=== PATIENT | female | born 1980 | race Caucasian/White ===

== ENCOUNTER 2019-05-21 17:41 | Emergency (ER) | payer BC ==
[2019-05-21] MEDS ORDERED: predniSONE 20 MG TAB ONE (18:20)
[2019-05-21] MEDS ORDERED: IPRATROPIUM BROM 0.5MG/2.5ML ONE (18:20)
[2019-05-21] MEDS ORDERED: AZITHROMYCIN 250 MG TAB ONE (18:20)
[2019-05-21] MEDS ORDERED: ALBUTEROL 2.5 MG/3 ML NEB SOL ONE (18:21)
--- NOTE | 2019-05-21 18:34 | RAD REPORT ---
EXAM DESCRIPTION: RAD - Chest Single View - 05/21/2019 6:23 pm CLINICAL HISTORY: CONGESTION, cough COMPARISON: None TECHNIQUE: AP portable chest image was obtained 05/21/2019 6:23 pm . FINDINGS: Lungs are clear. Heart and vasculature are normal. No measurable pleural effusion and no p neumothorax. No acute bony abnormality seen. No acute aortic findings suspected. IMPRESSION: No acute cardiopulmonary process.
--- NOTE | 2019-05-21 19:07 | ER ---
Nurse's Notes [facility] Name: Bird Holland Age: 39 yrs Sex: Female : 1980 Arrival Date: 05/21/2019 Time: 17:44 Bed 20 Private MD: Diagnosis: Asthma Presentation: 05/20 18:02 Chief complaint: Patient states: cough for a few weeks that got worse yesterday. dm5 History of asthma, tried extra neb treatment with no relief. Coronavirus screen: The patient has NOT traveled to a country currently being monitored by the [facility] within the last 14 days. Proceed with normal triage procedures. The patient has NOT had contact with any known and/or suspected case of coronavirus. Proceed with normal triage procedures. Ebola Screen: Patient negative for fever greater than or equal to 101.5 degrees Fahrenheit, and additional compatible Ebola Virus Disease symptoms Patient denies exposure to infectious person. Patient denies travel to an Ebola-affected area in the 21 days before illness onset. No symptoms or risks identified at this time. Initial Sepsis Screen: Does the patient meet any 2 criteria? No. Patient's initial sepsis screen is negative. Does the patient have a suspected source of infection? No. Patient's initial sepsis screen is negative. Risk Assessment: Do you want to hurt yourself or someone else? Patient reports no desire to harm self or others. 18:02 Method Of Arrival: Ambulatory dm5 18:02 Acuity: CONTRERAS 3 dm5 19:00 Onset of symptoms was May 21, 2019. 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 - Social history:: Patient/guardian denies using alcohol, street drugs, Smoking status: Patient denies any tobacco usage or history of. - Family history:: not pertinent. Screenin:00 Abuse screen: Denies threats or abuse. Nutritional screening: No deficits noted. em Tuberculosis screening: No symptoms or risk factors identified. Fall Risk None identified. Assessment: 18:15 General: Appears in no apparent distress. uncomfortable, Behavior is calm, cooperative, em Denies fever. Pain: Denies pain. Neuro: Level of Consciousness is awake, alert, obeys commands, Oriented to person, place, time, situation, Appropriate for age. Cardiovascular: Capillary refill < 3 seconds Patient's skin is warm and dry. Respiratory: Reports cough that is non-productive, Airway is patent Respiratory effort is even, unlabored, Respiratory pattern is regular, symmetrical, Breath sounds with wheezes bilaterally. Derm: Skin is intact, is healthy with good turgor, Skin is pink, warm \T\ dry. Musculoskeletal: Capillary refill < 3 seconds, Range of motion: intact in all extremities. 19:00 Reassessment: Patient appears in no apparent distress at this time. Patient and/or ca1 family updated on plan of care and expected duration. Pain level reassessed. Patient is alert, oriented x 3, equal unlabored respirations, skin warm/dry/pink. Vital Signs: 18:02 BP 134 / 88; Pulse 92; Resp 20; Temp 97.9(TE); Pulse Ox 99% ; dm5 19:00 BP 134 / 78; Pulse 93; Resp 16 S; Pulse Ox 98% on R/A; ca1 ED Course: 17:44 Patient arrived in ED. ag5 17:57 Alayna Ventura MD is Attending Physician. ma2 18:00 Patient has correct armband on for positive identification. Placed in gown. Bed in low em position. Call light in reach. Side rails up X2. Pulse ox on. NIBP on. 18:00 Arm band placed on. em 18:04 Triage completed. dm5 18:21 Chest Single View XRAY In Process Unspecified. EDMS 18:31 Harry Romeo, JAXSON is Primary Nurse. em 19:22 No provider procedures requiring assistance completed. Patient did not have IV access ca1 during this emergency room visit. Administered Medications: 18:18 Drug: Albuterol - atroVENT (3:1) (2.5 mg - 0.5 mg) 3 ml Route: Nebulizer; em 19:14 Follow up: Response: No adverse reaction; Marked relief of symptoms ca1 18:20 Drug: predniSONE 60 mg Route: PO; em 19:13 Follow up: Response: No adverse reaction ca1 18:20 Drug: Zithromax 500 mg Route: PO; em 19:13 Follow up: Response: No adverse reaction ca1 18:21 Not Given (Other Intervention Used): SOLU-Medrol 125 mg IVP once em 18:21 Not Given (Other Intervention Used): AZITHromycin 500 mg IVPB once over 1 hrs; (mix in em 250 mL NS) Outcome: 19:05 Discharge ordered by . rasheed 19:20 Discharged to home ambulatory. ca1 19:20 Condition: stable 19:20 Discharge instructions given to patient, Instructed on discharge instructions, follow up and referral plans. medication usage, Demonstrated understanding of instructions, follow-up care, medications, Prescriptions given X 4. 19:25 Patient left the ED. ca1 Signatures: Dispatcher [employer] Onelia Culver RN RN dm5 Harry Romeo RN RN em Alzahri, Mohammad, MD MD ma2 Maria Teresa Horton RN RN ca1 Reji Gabriel ag5
--- NOTE | 2019-05-21 19:07 | EDPHYS ---
Physician Documentation [facility] Name: Bird Holland Age: 39 yrs Sex: Female : 1980 Arrival Date: 05/21/2019 Time: 17:44 Bed 20 Private MD: ED Physician Alayna Ventura HPI: 05/20 19:04 This 39 yrs old Female presents to ER via Ambulatory with complaints of ma2 Asthma Exacerbation. 19:04 Onset: The symptoms/episode began/occurred gradually, 1 week(s) ago. Associated signs ma2 and symptoms: Pertinent negatives: choking, nausea, rash. Severity of symptoms: At their worst the symptoms were mild in the emergency department the symptoms are unchanged. The patient has not experienced similar symptoms in the past. 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 - Social history:: Patient/guardian denies using alcohol, street drugs, Smoking status: Patient denies any tobacco usage or history of. - Family history:: not pertinent. ROS: 19:04 Constitutional: Negative for fever, chills, and weight loss, Neck: Negative for injury, ma2 pain, and swelling, Cardiovascular: Negative for chest pain, palpitations, and edema, Respiratory: Negative for shortness of breath, cough, wheezing, and pleuritic chest pain, Abdomen/GI: Negative for abdominal pain, nausea, diarrhea, and constipation, Back: Negative for injury and pain. 19:04 All other systems are negative. Exam: 19:04 Constitutional: This is a well developed, well nourished patient who is awake, alert, ma2 and in no acute distress. Chest/axilla: Normal chest wall appearance and motion. Nontender with no deformity. No lesions are appreciated. Cardiovascular: Regular rate and rhythm with a normal S1 and S2. No gallops, murmurs, or rubs. Normal PMI, no JVD. No pulse deficits. Respiratory: + diffuse wheezes, Lungs have equal breath sounds bilaterally, clear to auscultation and percussion. No rales, rhonchi o noted. No increased work of breathing, no retractions or nasal flaring. Abdomen/GI: Soft, non-tender, with normal bowel sounds. No distension or tympany. No guarding or rebound. No evidence of tenderness throughout. MS/ Extremity: Pulses equal, no cyanosis. Neurovascular intact. Full, normal range of motion. Neuro: Awake and alert, GCS 15, oriented to person, place, time, and situation. Cranial nerves II-XII grossly intact. Motor strength 5/5 in all extremities. Sensory grossly intact. Cerebellar exam normal. Normal gait. Vital Signs: 18:02 BP 134 / 88; Pulse 92; Resp 20; Temp 97.9(TE); Pulse Ox 99% ; dm5 19:00 BP 134 / 78; Pulse 93; Resp 16 S; Pulse Ox 98% on R/A; ca1 MDM: 17:57 Patient medically screened. ma2 19:04 Differential diagnosis: acute asthma, exercise-induced asthma, reactive airway, URI. ma2 Antibiotic administration: The patient is discharged and will get outpatient antibiotics. Data reviewed: vital signs, nurses notes. Counseling: I had a detailed discussion with the patient and/or guardian regarding: the historical points, exam findings, and any diagnostic results supporting the discharge/admit diagnosis, the presence of at least one elevated blood pressure reading (>120/80) during this emergency department visit, lab results, the need for outpatient follow up. Response to treatment: the patient's symptoms have resolved after treatment. 05/20 18:07 Order name: Chest Single View XRAY; Complete Time: 19:02 ma2 Administered Medications: 18:18 Drug: Albuterol - atroVENT (3:1) (2.5 mg - 0.5 mg) 3 ml Route: Nebulizer; em 19:14 Follow up: Response: No adverse reaction; Marked relief of symptoms ca1 18:20 Drug: predniSONE 60 mg Route: PO; em 19:13 Follow up: Response: No adverse reaction ca1 18:20 Drug: Zithromax 500 mg Route: PO; em 19:13 Follow up: Response: No adverse reaction ca1 18:21 Not Given (Other Intervention Used): SOLU-Medrol 125 mg IVP once em 18:21 Not Given (Other Intervention Used): AZITHromycin 500 mg IVPB once over 1 hrs; (mix in em 250 mL NS) Disposition: 05/21/19 19:05 Discharged to Home. Impression: Asthma. - Condition is Stable. - Discharge Instructions: Asthma, Pediatric. - Prescriptions for Albuterol Sulfate 2.5 mg /3 mL (0.083 %) Inhalation Solution for Nebulization - inhale 1 unit by NEBULIZATION route every 8 hours As needed; 1 box. Zithromax Z- Enrique 250 mg Oral Tablet - take 1 tablet by ORAL route as directed for 5 days Day 1 - take two (2) tablets one time. Day 2, 3, 4 , 5 take one (1) tablet once daily.; 6 tablet. Medrol (Enrique) 4 mg Oral Tablets, Dose Pack - take 1 tablet by ORAL route as directed - follow package instructions; 1 packet. Albuterol Sulfate 90 mcg/actuation - inhale 1-2 puff by INHALATION route every 4-6 hours; 1 Inhaler. - Medication Reconciliation Form, Thank You Letter, Antibiotic Education, Prescription Opioid Use, Work release form form. - Follow up: Private Physician; When: Tomorrow; Reason: If symptoms return, Continuance of care. Signatures: Dispatcher [employer] Harry Troy RN RN Alayna Hernández MD MD ma2 Maria Teresa Horton RN RN ca1 Corrections: (The following items were deleted from the chart) 19:25 19:05 05/21/2019 19:05 Discharged to Home. Impression: Asthma. Condition is Stable. ca1 Prescriptions for Albuterol Sulfate 2.5 mg /3 mL (0.083 %) Inhalation Solution for Nebulization - inhale 1 unit by NEBULIZATION route every 8 hours As needed; 1 box, Zithromax Z-Enrique 250 mg Oral Tablet - take 1 tablet by ORAL route as directed for 5 days Day 1 - take two (2) tablets one time. Day 2, 3, 4 , 5 take one (1) tablet once daily.; 6 tablet, Medrol (Enrique) 4 mg Oral Tablets, Dose Pack - take 1 tablet by ORAL route as directed - follow package instructions; 1 packet. and Forms are Medication Reconciliation Form, Thank You Letter, Antibiotic Education, Prescription Opioid Use. Follow up: Private Physician; When: Tomorrow; Reason: If symptoms return, Continuance of care. ma2
[2019-05-21 19:32] VITALS: TEMP 97.9
[2019-05-21 19:34] VITALS: BP 134/78; O2SAT 98
== END 2019-05-21 19:25 | disposition home or self-care (01) ==
LOC: ER 17:41
DX: J45.909 Unspecified asthma, uncomplicated (principal)
CPT/HCPCS: 71045; 94640; 99284; J7512

== ENCOUNTER 2021-04-20 08:56 | Emergency (ER) | payer BC ==
--- OUTSIDE RECORDS SUMMARY | 2021-04-20 08:58 | XMS REPORT | Continuity of Care Document ---
:1980 Author Organization [facility] t Address [address] [place] [address] Care Team Providers Name Role Phone REMINGTON PETTIT Attending Clinician Unavailable Vaccine, Family Attending Clinician Unavailable Junie RESOURCE CENTER TEACHER Attending Clinician JUNIE Attending Clinician Unavailable Lab, Fam Pob I Attending Clinician Unavailable Anene RESOURCE CENTER TEACHER Attending Clinician ANENE Attending Clinician Unavailable Doctor Unassigned, Name Attending Clinician Unavailable Payers Payer Name Policy Type Policy Number Effective Date Expiration Date S [facility] - [id number] 2019 00:00:00 OUT OF STATE Problems This patient has no known problems. Allergies, Adverse Reactions, Alerts Allergy Allergy Status Severity Reaction(s) Onset Inactive Treating Comm ents Source Name Type Date Date Clinician NO KNOWN Drug Active Univers ALLERGIE Class ity of [facility] Social History Social Habit Start Date Stop Date Quantity Comments Source Exposure to Not sure [facility] SARS-CoV-2 (event) Medica l Branch Sex Assigned At [birth year] [facility] 00:00:00 00:00:00 Medical Branch Smoking Status Start Date Stop Date Source Unknown if ever smoked [facility] Medications This patient has no known medications. Immunizations Ordered Filled Immunization Date Status Comments Sourc e Immunization Name Name SARS-COV-2 COVID-19 2020-10-04 Completed Unive rsity of PFIZER VACCINE 00:00:00 [facility] Procedures Procedure Date / Time Performed Performing Clinician Bradley e SARS-COV-2 COVID-19 2020-10-04 14:42:30 Doctor Unassigned, No Un [facility] [place] VACCINE,0.3ML,IM Name Medical Branch (PFIZER) Encounters Start End Encounter Admission Attending Care Care Encounter Source Date/Time Date/Time Type Type Clinicians Facility Department ID 2020-10-25 2020-10-25 Outpatient R [facility] [id number] Univers 09:30:00 09:30:00 [id number] ity [facility] 2020-10-25 2020-10-25 Outpatient R [facility] [id number] Univers 09:30:00 09:30:00 ity [facility] 2020-10-24 2020-10-24 [facility] [id number] Univers 14:30:00 14:30:00 [facility] 2020-10-04 2020-10-04 Imm/Inj Vaccine, [facility] 1.2.84 [id number] Univers 09:34:16 09:44:[address] [facility] [id number] ity of [place] [id number] Yao as Professio [phone] Id dical nal [address] 2020-10-04 2020-10-04 Outpatient [facility] [id number] Univers 09:10:00 09:10:00 [id number] ity [facility] 2020-10-04 2020-10-04 Outpatient R JUNIE [facility] [id number] Univers 09:10:00 09:10:[address] [facility] 2020-03-25 2020-03-25 Laboratory Lab, [facility] I [facility] 1.2. [id number] Univers 16:18:47 16:38:[address] [facility] [id number] ity [place] [id number] Yao as Professio [phone] Id dical nal [address] 2020-03-25 2020-03-25 Outpatient [facility] [id number] Univers 16:20:00 16:20:[id number] [facility] 2020-03-25 2020-03-25 Outpatient R ALEXYS [facility] [id number] Univers 16:20:00 16:20:[address] [facility] 2020-01-21 2020-01-21 Laboratory Lab, Adc Fam Pob I [facility] 1.2. [id number] Univers 14:38:35 14:58:35 Only Nikunj Alvares [id number] ity of [place] [id number] Yao as Raeannio [phone] [facility] [address] 2020-01-21 2020-01-21 Outpatient R ALEXYS [facility] [id number] Univers 14:40:00 14:40:00 NIKUNJ ity [facility] 2020-01-21 2020-01-21 Outpatient [facility] [id number] Univers 14:40:00 14:40:00 [id number] ity [facility] 2020-01-21 2020-01-21 Letter Doctor JULIETTE [id number] Univers 00:00:00 00:00:00 (Out) Unassigned, ZECHARIAH [id number] ity of [place] [facility] [id number] Yao as [phone] [place] [address] Branch Results This patient has no known results.
--- NOTE | 2021-04-20 10:14 | ER ---
Nurse's Notes [facility] Name: Bird Holland Age: 41 yrs Sex: Female : 1980 Arrival Date: 04/20/2021 Time: 08:56 Bed 9 Private MD: Diagnosis: Acute pharyngitis, unspecified;Acute upper respiratory infection, unspecified;Acute serous otitis media, bilateral Presentation: 04/20 09:08 Chief complaint: Patient states: Fever, cough, SOB, GARCIA for 12 days. Coronavirus screen: 1 Vaccine status: Patient reports receiving the 2nd dose of the covid vaccine. Client denies travel out of the [place] in the last 14 days. congestion, cough unrelated to allergies, fatigue, fever, headache, muscle pain, shortness of breath, Client presents with at least one sign or symptom that may indicate coronavirus-19. Standard/surgical mask placed on the client. Ebola Screen: Patient denies travel to an Ebola-affected area in the 21 days before illness onset. Initial Sepsis Screen: Does the patient meet any 2 criteria? HR > 90 bpm. No. Patient's initial sepsis screen is negative. Does the patient have a suspected source of infection? Yes: Productive cough/pneumonia. Risk Assessment: Do you want to hurt yourself or someone else? Patient reports no desire to harm self or others. Onset of symptoms was April 08, 2021. 09:08 Method Of Arrival: Ambulatory [facility] 09:08 Acuity: CONTRERAS 3 ll1 Historical: - Allergies: 09:10 No Known Allergies; ll1 - PMHx: 09:10 Asthma; ll1 - PSHx: 09:10 None; ll1 - Immunization history:: Client reports receiving the 2nd dose of the Covid vaccine. - Social history:: Smoking status: Patient denies any tobacco usage or history of. Vital Signs: 09:08 BP 141 / 81; Pulse 111; Resp 18; Temp 99.7; Pulse Ox 98% on R/A; Weight 94.35 kg; ll1 Height 5 ft. 5 in. (165.10 cm); Pain 9/10; 09:08 Body Mass Index 34.61 (94.35 kg, 165.10 cm) 1 ED Course: 08:56 Patient arrived in ED. as 09:09 Bashir Agosto PA is PHCP. [facility] 09:09 Ronaldo Zimmer MD is Attending Physician. [facility] 09:10 Triage completed. [facility] 09:10 Arm band placed on Patient placed in an exam room, on a stretcher. [facility] 10:14 Kaylyn Hutton, RN is Primary Nurse. [facility] Administered Medications: 10:21 Drug: Decadron (dexamethasone) 10 mg Route: IM; Site: right deltoid; [facility] Outcome: 10:13 Discharge ordered by MD. [facility] 10:21 Patient [address] the ED. [facility] Signatures: Bashir Agosto PA PA jmm Martinez, Amelia as Lewis, Lynsay, JAXSON RN [facility] Kaylyn Hutton, JAXSON RN [facility]
--- NOTE | 2021-04-20 10:15 | EDPHYS ---
Physician Documentation [facility] Name: Bird Holland Age: 41 yrs Sex: Female : 1980 Arrival Date: 04/20/2021 Time: 08:56 Bed 9 Private MD: ED Physician Ronaldo Zimmer HPI: 04/20 10:10 This 41 yrs old Female presents to ER via Ambulatory with complaints of Fever, Cough, jmm Shortness Of Breath, Chest Pain, Headache. 10:10 Onset: The symptoms/episode began/occurred gradually, 12 day(s) ago. Modifying factors: jmm there are no obvious modifying factors. Associated signs and symptoms: Pertinent positives: cough, shortness of breath, sore throat. This is a 41-year-old female with history of asthma the presents emerged department with cough and congestion beginning approximately 12 days ago. Patient states that today she developed a fever with sore throat and earache as well. Denies vomiting, diarrhea.. Historical: - Allergies: 09:10 No Known Allergies; ll1 - PMHx: 09:10 Asthma; ll1 - PSHx: 09:10 None; ll1 - Immunization history:: Client reports receiving the 2nd dose of the Covid vaccine. - Social history:: Smoking status: Patient denies any tobacco usage or history of. ROS: 10:10 Constitutional: Positive for body aches, fever. jmm 10:10 ENT: Positive for ear pain. 10:10 Respiratory: Positive for cough, shortness of breath, wheezing. 10:10 Neuro: Positive for headache. 10:10 All other systems are negative. Exam: 10:10 Constitutional: This is a well developed, well nourished patient who is awake, alert, jmm and in no acute distress. Head/Face: atraumatic. Eyes: EOMI, no conjunctival erythema appreciated 10:10 Neck: Trachea midline, Supple Chest/axilla: Normal chest wall appearance and motion. 10:10 Abdomen/GI: Non distended, soft Back: Normal ROM Skin: General appearance color normal MS/ Extremity: Moves all extremities, no obvious deformities appreciated, no edema noted to the lower extremities Neuro: Awake and alert Psych: Behavior is normal, Mood is normal, Patient is cooperative and pleasant 10:10 ENT: TM's: erythema, that is moderate, bilaterally, Posterior pharynx: Airway: normal, Tonsils: enlarged on the right, Uvula: midline, erythema, that is moderate. 10:10 Cardiovascular: Rate: normal, Rhythm: regular. 10:10 Respiratory: the patient does not display signs of respiratory distress, Respirations: normal, Breath sounds: are clear throughout. Vital Signs: 09:08 BP 141 / 81; Pulse 111; Resp 18; Temp 99.7; Pulse Ox 98% on R/A; Weight 94.35 kg; ll1 Height 5 ft. 5 in. (165.10 cm); Pain 9; 09:08 Body Mass Index 34.61 (94.35 kg, 165.10 cm) ll1 MDM: 10:10 Patient medically screened. [facility] 10:12 Data reviewed: vital signs, nurses notes. Counseling: I had a detailed discussion with ernesto the patient and/or guardian regarding: the historical points, exam findings, and any diagnostic results supporting the discharge/admit diagnosis, the need for outpatient follow up, to return to the emergency department if symptoms worsen or persist or if there are any questions or concerns that arise at home. ED course: Patient is alert nontoxic in appearance in the ED. Patient advised follow-up PCP and otherwise given strict return precautions. Patient understood agrees plan of care.. 04/20 09:15 Order name: COVID-19/FLU A+B (Document "Date of Onset" if Symptomatic) [facility] 04/20 09:15 Order name: Strep kisha Administered Medications: 10:21 Drug: Decadron (dexamethasone) 10 mg Route: IM; Site: right deltoid; jh5 Disposition: 14:15 Co-signature as Attending Physician, Ronaldo Zimmer MD. rn Disposition Summary: 04/20/21 10:13 Discharge Ordered Location: Home [facility] Condition: Stable [facility] Diagnosis - Acute pharyngitis, unspecified jmm - Acute upper respiratory infection, unspecified jmm - Acute serous otitis media, bilateral jmm Followup: [facility] - With: Private Physician - When: 2 - 3 days - Reason: Recheck today's complaints, Continuance of care, Re-evaluation by your physician Discharge Instructions: - Discharge Summary Sheet jm - Pharyngitis jmm - Upper Respiratory Infection, Adult jm Forms: - Medication Reconciliation Form [facility] - Thank You Letter kisham - Antibiotic Education jmm - Prescription Opioid Use jmm Prescriptions: - cefdinir 300 mg Oral capsule - take 1 capsule by ORAL route every 12 hours for 10 days; 20 capsule; Refills: [facility] 0, Product Selection Permitted - Medrol (Enrique) 4 mg Oral Tablets, Dose Pack - take 1 tablet by ORAL route as directed - follow package instructions; 1 [facility] packet; Refills: 0, Product Selection Permitted Signatures: Dispatcher [employer] EDBashir Escobar PA PA [facility] Ronaldo Zimmer MD MD rn Lewis, Lynsay RN RN ll1 Kaylyn Hutton RN RN jh5
[2021-04-20] MEDS ORDERED: dexAMETHasone 10 MG/ML VIAL ONE (10:19)
[2021-04-20 10:38] VITALS: BP 141/81; TEMP 99.7; O2SAT 98
[2021-04-20 10:48] LABS: SARS-COV-2 RT PCR NEGATIVE (NEGATIVE)
== END 2021-04-20 10:21 | disposition home or self-care (01) ==
LOC: ER 08:56
DX: J10.1 Influenza due to other identified influenza virus with other respiratory manifestations (principal); H65.03 Acute serous otitis media, bilateral; Z20.822 Contact with and (suspected) exposure to COVID-19
CPT/HCPCS: 87070; 87081; 0240U; 96372; 99282; J1100

== ENCOUNTER → 2023-04-07 | Day surgery (SDC) | payer BC, OTHER ==
[~2023-04-07] MED LIST: CEFAZOLIN SODIUM 2 GM/VIAL ONE; CHONDRO SU A PO SCH; FENTANYL CITR 100 MCG/2 ML ONE; FERROUS SULFATE 325 MG TAB PO SCH; FOLIC ACID PO SCH; GLUC SU PO SCH; GLYCOPYRROLATE 0.2 MG/ML SYR ONE; HOME MED 1 EA UNK (Ascorbic Acid [Vitamin C] 1,000 MG Tablet) PO SCH; HOME MED 1 EA UNK (Biotin [Biotin] 10,000 MCG Capsule) PO SCH; HOME MED 1 EA UNK (Cetirizine Hcl [Zyrtec] 10 MG Tablet) PO SCH; HOME MED 1 EA UNK (L.Acidoph,Paracasei, B.Lactis [Probiotic] Capsule) PO SCH; HYDROCODONE/APAP 5/325 MG TAB PO PRN; HYDROMORPHONE HCL 1 MG/ML INJ ONE; INULIN 2 GM PO SCH; KETOROLAC 30 MG/ML INJ ONE; LIDOCAINE 2% MPF 5 ML VIAL ONE; MEPERIDINE HCL 25 MG/ML SYR IM PRN; MIDAZOLAM HCL 2 MG/2 ML INJ ONE; Mastisol Adhesive Liq ONE; NEOSTIGMINE 1 MG/ML -10 ML VIAL ONE; ONDANSETRON 4 MG/2 ML VIAL ONE; PROMETHAZINE 25 MG TABLET PO PRN; PROMETHAZINE INJ 25 MG/ML AMP IV PRN; ROCURONIUM 50 MG/5 ML VIAL IV ONE; Ringers Lactate 1,000 ML IV ONE; SCOPOLAMINE HYDROBROMIDE PATCH TD ONE; VIT C PO SCH; VITAMIN B COMPLEX PO SCH; [UNRECOGNIZED DRUG - OTHER] PO SCH; [UNRECOGNIZED DRUG - OTHER] PO SCH; dexAMETHasone 10 MG/ML VIAL ONE; propofoL 200 MG/20 ML VIAL IV ONE
[2023-04-07 10:01] LABS: Urine Specific Gravity/Preg >1.030 (1.005-1.030)
[2023-04-07] MEDS: BUPIVACAINE 0.25% PF 30 ML VIAL ONE ×2 (10:47→10:49)
--- NOTE | 2023-04-07 12:09 | P.BOP ---
Preoperative diagnosis: AUB-L/A, dysmenorrhea Postoperative diagnosis: same and endometriosis Primary procedure: Hysteroscopy Endometrial ablation, bilateral salpingectomy Secondary procedure: laparoscopic endometriosis fulgration/excision Senior Strategy Analyst: NONE,NONE Estimated blood loss: min Specimen: both tubes, right lateral wall Findings: endometriosis, bilateral lateral madsen Anesthesia: General Complications: None Transferred to: Recovery Room Condition: Good
[2023-04-07 14:06] VITALS: BP 129/76; TEMP 97.7; O2SAT 94
--- NOTE | 2023-04-08 07:56 | OP ---
Date of Procedure: 04/07/2023 Surgeon: Fany Patricia MD Brazer Furnace: None. Preoperative Diagnoses: AUB-L/A, dysmenorrhea. Postoperative Diagnoses: AUB-L/A, dysmenorrhea, endometriosis. Procedures Performed: 1.Hysteroscopy with endometrial ablation using NovaSure. 2.Diagnostic laparoscopy, bilateral salpingectomy. 3.Laparoscopic endometriosis fulguration and excision. Estimated Blood Loss: Minimal. Specimens: Bilateral tubes and right lateral wall endo. Findings: Endometriosis in the bilateral lateral madsen in the lower part of the pelvis, 1 lesion was excised for biopsy and the others were cauterized with the bipolar. Anesthesia: General endotracheal. Complications: No complications Disposition: Transferred to the recovery room in stable condition. Indications: The patient is a 43-year-old with menorrhagia and dysmenorrhea and fibroid uterus, susp ected adenomyosis or leiomyoma. She was evaluated with endometrial sampling that was negative for at ypia or malignancy. Discussed about all the different options. She was completed with childbearing. She wanted to proceed with an ablation and diagnostic laparoscopy with bilateral salpingectomy, pos sible endometriosis excision. Procedure In Detail: She was taken back to the OR after the consent in the preoperative area. She w as placed in supine fashion on the operating table. General anesthesia was given. She was placed in a dorsal lithotomy position using Jeremías stirrups. Abdomen prepped with ChloraPrep; vulva, vagina an d perineum with Betadine. She was draped in a sterile fashion. After time-out was done. SCDs were started. Procedure started. Speculum was placed to expose the cervix. Anterior lip grasped with a single-tooth tenaculum, dilate d to 14-Kenyan. Then uterine cavity was measured with the hysteroscope as well as with the measuring device that came with the ablation NovaSure handpiece. Cavity length was 4.5 cm, which was entered into the generator. After the device was primed, the device was then deployed into the uterine cavit y. The cavity width was 2.6 cm. She had an ablation cycle of 1 minute 54 seconds at a power of 62 w atts. She had an excellent ablation after removal of the device in the usual fashion. Discarding th is, hysteroscope was reintroduced and there was excellent ablation effect in the entire endometrial c avity. The diagnostic uterine manipulator was introduced. Hunt was placed to drain the bladder and this ar ea was covered. The infraumbilical 1 cm incision was made with a scalpel. Bupivacaine was used skin and f ascia on all sites. Fascia was incised with an 11 blade tagged with 0 Vicryl sutures. Peritoneum entered sharply. Hasso n introduced and 10 port was placed. The left lower quadrant and suprapubic 5 ports were placed each . After bupivacaine injection of the fascia and the skin under direct vision without any problems, u pper abdominal cavity was unremarkable. The patient was placed in Trendelenburg. Then, it was clear that the right tube appeared to be severed. On the left, I did not see significant ligation point. There was endometriosis in the posterior lateral madsen on both the left and the right, the right sli ghtly more than the left. Plan was to remove the tubes and perform endometriosis excision. Both tubes were removed from the fimbriated end to the cornual end using the LigaSure. These both we re retrieved and sent out for permanent pathology. Endometriosis was picked up from the area between the uterosacral distal ureteric tunnel. This was e xcised and had for pathology to be sampled and the rest of the endometriosis implants were very tiny and superficial. These were picked up. The peritoneum was cauterized with the bipolar on both sides of the lateral madsen, both right lateral wall and left lateral wall. Once satisfactory fulguration was performed, then thorough irrigation and suction were performed. All pedicles checked for hemosta sis. All the trocars removed under direct vision. Fascia at the umbilicus after deflating and pulli ng out the Joaquin was closed with the help of 0 Vicryl sutures tied to each other and interrupted 5-0 Monocryl for skin closure. Vaginal manipulator and Hunt were removed. Instrument, needle, and spo nge counts were correct at the end of the case. The patient tolerated procedure well. She will retu rn for her followup appointment in the office. MARLY/ANSHUL Voice ID: [id number] Report ID: [id number]
== END ==
LOC: OR 08:48
PROVIDERS: ATTEND Obstetrics & Gynecology
PROC: 0UT74ZZ Resection of Bilateral Fallopian Tubes, Percutaneous Endoscopic Approach (ICD-10-PCS; 2023-04-07)
PROC: 0UB44ZZ Excision of Uterine Supporting Structure, Percutaneous Endoscopic Approach (ICD-10-PCS; 2023-04-07)
PROC: 0U5B8ZZ Destruction of Endometrium, Via Natural or Artificial Opening Endoscopic (ICD-10-PCS; principal; 2023-04-07 10:00)
DX: N92.1 Excessive and frequent menstruation with irregular cycle (principal); N94.6 Dysmenorrhea, unspecified; J45.909 Unspecified asthma, uncomplicated; K21.9 Gastro-esophageal reflux disease without esophagitis; D75.839 Thrombocytosis, unspecified; N80.3A3 Superficial endometriosis of the bilateral uterosacral ligament(s)
CPT/HCPCS: 58563; 58661; 58662; 81025; 88302; 88305; J2704; J2710; J2001; J2250; J3010; J1100; J1170; J2405; J7120 ×2